=== PATIENT | male | born 1985 | race Two or more races ===

== ENCOUNTER 2025-01-19 17:12 | Inpatient (IN) | payer OTHER, SELFPAY ==
--- NOTE | ~2025-01-19 | FL_ITS ---
EXAMINATION: FL GUIDANCE ONLY HISTORY: ERCP COMPARISON: Correlation is made with an abdominal ultrasound dated 01/19/2025. TECHNIQUE: Fluoroscopy time: 1.0 minutes. Cumulative Dose: 24.6 mGy. DAP: 6.70 mGym2 Images: 5. FINDINGS: Images demonstrate opacification of the common bile duct and intrahepatic biliary radicles. The common bile duct is normal in caliber. No intraluminal filling defects are identified. FL/FL guidance in OR IMPRESSION: Fluoroscopy during procedure. Please see procedure report for additional information. Electronically signed by: Alberto Leon MD 01/21/2025 03:29 PM EDT
--- NOTE | ~2025-01-19 | NM_ITS ---
EXAMINATION: NM BILIARY TRACT CLINICAL INFORMATION: Epigastric and upper abdominal pain x2 days. Ultrasound abdomen demonstrates numerous mobile intraluminal gallstones. COMPARISON: Abdomen limited ultrasound 01/19/2025. TECHNIQUE: Hepatobiliary scan was performed after the IV administration of 4.75 mCi technetium 99m-mebrofenin. Images obtained every 2 minutes postinjection for total of 2 hours. 3.5 hour delay images also obtained. FINDINGS: There is rapid uptake of blood flow related to his into the hepatic parenchyma. There are no photopenic defects. There is mildly delayed excretion of radiotracer into the bile ducts and common duct. At 1 hour 20 minutes, the small bowel/duodenum is visualized. Mildly delayed visualization of the gallbladder was evident although gallbladder was visualized filling with radiotracer at 3.5 hour delayed imaging. NM/NM hepatobiliary wo pharm IMPRESSION: 1. No evidence of acute cholecystitis. The gallbladder was visualized normally at 3.5 hour delayed images. 2. Somewhat delayed excretion of radiotracer into the duodenum as described. This is nonspecific and could represent a partial common duct obstruction versus hepatocellular dysfunction. Recommend correlating with laboratory values and ultimately ERCP. Electronically signed by: Miah Garcia MD 01/20/2025 04:59 PM EDT
--- NOTE | ~2025-01-19 | US_ITS ---
CLINICAL HISTORY: ruq pain after eating US abdomen limited Comparison: None Findings: Normally distended gallbladder with no gallbladder wall thickening or pericholecystic fluid. Multiple mobile hyperechoic gallstones in the gallbladder lumen. Mild extrahepatic biliary ductal dilatation. The common duct measures approximately 10 mm in diameter at the jared hepatis. IMPRESSION: 1. Multiple mobile gallstones with extrahepatic biliary ductal dilatation but no findings of cholecystitis. Findings could represent an element of biliary tract obstruction. This document has been electronically signed by: Giuseppe Grey MD on 01/19/2025 19:18:30
[2025-01-19 17:25] VITALS: BP 142/84; PULSE 73; RESP 18; TEMP 36.9; O2SAT 97; BMI 23.5
[2025-01-19 18:03] LABS: MANUAL DIFF FLAG NO
[2025-01-19 18:21] LABS: Basophils Absolute Auto 0.1 X10*3/uL (0.0-0.2); Basophils Percent Auto 0.7 % (0-2); Eosinophils Absolute Auto 0.3 X10*3/uL (0.0-0.4); Hematocrit 42.1 % (42.0-52.0); Hemoglobin 14.5 g/dl (14.0-18.0); Imm Gran Abs Auto 0.03 X10*3/uL (0.00-0.03); Imm Gran Pct Auto 0.4 % (0.0-0.4); Lymphocytes Absolute Auto 1.8 X10*3/uL (1.2-4.9); Lymphocytes Percent Auto 22.3 % (20-40); Mean Corpuscular HGB Conc 34.4 g/dl (31.0-36.0); Mean Corpuscular Hemoglobin 30.1 pg (27.0-33.0); Mean Corpuscular Volume 87.3 fL (80.0-98.0); Mean Platelet Volume 11.2 fL (9.4-12.4); Monocytes Absolute Auto 0.6 X10*3/uL (0.1-1.2); Monocytes Percent Auto 7.4 % (2-11); Neutrophils Absolute Auto 5.4 x10*3/uL (2.0-8.3); Neutrophils Percent Auto 66.2 % (45-73); Platelet Count 235 X10*3/uL (160-400); Red Blood Count 4.82 X10*6/uL (4.60-5.80); Red Cell Distribution Width 13.2 % (11.0-16.0); White Blood Count 8.2 X10*3/uL (4.8-10.8)
[2025-01-19 18:23] LABS: Alanine Aminotransferase 737 U/L (0-40); Albumin Level 4.4 g/dL (3.5-5.0); Alkaline Phosphatase 94 U/L (39-117); Anion Gap 12 (12-20); Aspartate Amino Transferase 386 U/L (5-37); Bilirubin Total 3.2 mg/dL (0.0-1.0); Blood Urea Nitrogen 7 mg/dL (9-16); Calcium 9.2 mg/dL (8.4-10.2); Carbon Dioxide 27 mmol/L (22-29); Chloride 105 mmol/L (96-108); Creatinine Clr Calc Pharmacy 91.1; Estimated Glomerular Filt Rate > 60; Glucose Random 110 mg/dL (60-115); Lipase 31 U/L (8-78); Sodium 140 mmol/L (135-145)
[2025-01-19 18:44] LABS: Influenza A PCR NEGATIVE (Negative); Influenza B PCR NEGATIVE (Negative); Resp Syncy Virus RNA Qual PCR NEGATIVE (Negative); SARS COV2 PCR INHOUSE NEGATIVE (Negative)
[2025-01-19 21:09] VITALS: BP 124/81; PULSE 62; RESP 16; TEMP 36.7; O2SAT 97
--- NOTE | 2025-01-19 21:33 | ED.ABDPAIN ---
HPI - Abdominal Pain General Chief Complaint: Abdominal Pain Stated Complaint: Rib cage pain Time Seen by Provider: 01/19/25 21:19 Source: patient Limitations: no limitations History of Present Illness ED Provider: Candis Rothman PA-C HPI narrative: 39-year-old otherwise healthy male presents with the abdominal pain x2 days. Pain over epigastric and right upper quadrant with radiation to the back. The discomfort worsens with the eating, which also triggers active vomiting. Associated chills but no fever. Patient was not had any intra-abdominal surgeries. Related Data Allergies Allergy/AdvReac Type Severity Reaction Status Date / Time Penicillins Allergy Rash Verified 01/19/25 17:31 Review of Systems Review of Systems Yes all other systems are reviewed and are negative Constitutional: Reports chills, Denies fatigue and Denies fever(s) Cardiovascular: Denies chest pain and Denies dyspnea Respiratory: Denies cough and Denies dyspnea Gastrointestinal: Reports abdominal pain, Reports nausea and Reports vomiting Endocrine: Denies fatigue PMFSH Past Medical History Attestation statement: The following information was validated with the patient. Social History Social History Advance Directives: No Advance Directives Information Provided: Yes Physical Exam ED Vital Signs: Vital Signs - 24 hr 01/19/25 17:25 01/19/25 21:09 Temperature 98.5 F 98.1 F Pulse Rate 73 62 Respiratory Rate 18 16 Blood Pressure 142/84 H 124/81 Pulse Oximetry 97 97 Oxygen Delivery Method Room Air Room Air BMI result Body Mass Index 23.5 Const Other: Alert Orientation/consciousness: patient oriented x3 Resp Effort & Inspection: normal respiratory effort Cardio Other: Normal peripheral perfusion GI Other: Abdomen is soft, nondistended, mild to moderate tenderness in right upper quadrant but no guarding Skin Other: Warm dry no rash Neuro General: patient oriented x3, gait normal, no focal motor deficits and CN's II-XI intact bilaterally Psych Other: Cooperative Course Consultations Consultation #1: paged Dr. Stock, she recommends medicine admit and they will follow, and the patient clearly requires GI consult Time: 21:42 Medical Decision Making Medical Decision Making MDM Narrative: 39-year-old otherwise healthy male presents with the abdominal pain x2 days. Pain over epigastric and right upper quadrant with radiation to the back. The discomfort worsens with the eating, which also triggers active vomiting. Associated chills but no fever. Patient was not had any intra-abdominal surgeries. No chronic issues History: Per patient I have considered the following differential diagnoses: Biliary colic, cholecystitis, gastritis, pancreatitis Plan: Screening labs including LFTs and an ultrasound of right upper quadrant were already obtained from triage, he is having active biliary colic, with concerns for choledocholithiasis. We will be ordering fluid, Zofran and morphine, we will be reaching out to the surgical service, he clearly requires GI as well. I have independently reviewed the following tests: Labs: No leukocytosis, not anemic, no electrolyte abnormality, T bili 3.2, direct bili 2, AST 386, ALT 737, Ultrasound right upper quadrant:IMPRESSION: 1. Multiple mobile gallstones with extrahepatic biliary ductal dilatation but no findings of cholecystitis. Findings could represent an element of biliary tract obstruction. This document has been electronically signed by: Giuseppe Grey MD on 01/19/2025 19:18:30 Lab Data 01/19/25 17:59 01/19/25 17:59 Labs: Lab Results 01/19/25 Range/Units 17:59 WBC 8.2 (4.8-10.8) X10*3/uL RBC 4.82 (4.60-5.80) X10*6/uL Hgb 14.5 (14.0-18.0) g/dl Hct 42.1 (42.0-52.0) % MCV 87.3 (80.0-98.0) fL MCH 30.1 (27.0-33.0) pg MCHC 34.4 (31.0-36.0) g/dl RDW 13.2 (11.0-16.0) % Plt Count 235 (160-400) X10*3/uL MPV 11.2 (9.4-12.4) fL Immature Gran % (Auto) 0.4 (0.0-0.4) % Neut % (Auto) 66.2 (45-73) % Lymph % (Auto) 22.3 (20-40) % [place] % (Auto) 7.4 (2-11) % Eos % (Auto) 3.0 (0-4) % Baso % (Auto) 0.7 (0-2) % Lymph # (Auto) 1.8 (1.2-4.9) X10*3/uL [place] # (Auto) 0.6 (0.1-1.2) X10*3/uL Eos # (Auto) 0.3 (0.0-0.4) X10*3/uL Baso # (Auto) 0.1 (0.0-0.2) X10*3/uL Abs Immat Gran (auto) 0.03 (0.00-0.03) X10*3/uL Absolute Neuts (auto) 5.4 (2.0-8.3) x10*3/uL Absolute Nucleated RBC 0.000 (0.0-0.012) X10*3/uL Nucleated RBC % (auto) 0.0 (0.0-0.2) /100WBC Sodium 140 (135-145) mmol/L Potassium 4.0 (3.3-5.1) mmol/L Chloride 105 (96-108) mmol/L Carbon Dioxide 27 (22-29) mmol/L Anion Gap 12 (12-20) BUN 7 L (9-16) mg/dL Creatinine 1.11 (0.5-1.4) mg/dL Estim Creat Clear Calc 91.1 Estimated GFR > 60 Random Glucose 110 (60-115) mg/dL Calcium 9.2 (8.4-10.2) mg/dL Total Bilirubin 3.2 H (0.0-1.0) mg/dL Direct Bilirubin 2.0 H (0.0-0.5) mg/dL AST 386 H (5-37) U/L ALT 737 H (0-40) U/L Alkaline Phosphatase 94 (39-117) U/L Total Protein 8.0 (6.5-8.0) g/dL Albumin 4.4 (3.5-5.0) g/dL Lipase 31 (8-78) U/L Influenza Type A (PCR) NEGATIVE (Negative) Influenza Type B (PCR) NEGATIVE (Negative) RSV RNA Qual (PCR) NEGATIVE (Negative) SARS-CoV-2 RNA (RT-PCR) NEGATIVE (Negative) Discharge Plan Discharge Clinical Impression: Cholelithiasis, Choledocholithiasis, Biliary colic Patient Disposition: Admitted As Inpatient Print Language: Yakut
[2025-01-19 21:52] VITALS: BP 126/71; PULSE 71; RESP 16; TEMP 36.7; O2SAT 97
[2025-01-19] MEDS: 0.9 % Sodium Chloride 1,000 ML 999 ML IV (21:52)
[2025-01-19] MEDS: Morphine Sulfate 4 MG/ML CARTRIDGE IVPUSH (21:52)
[2025-01-19] MEDS: ondansetron HCL 4 MG/2 ML VIAL IVPUSH (21:53)
--- NOTE | 2025-01-19 21:58 | PC.NURSE ---
pt change into hospital attire, Iv placed, medicated per mar, pt NPO.
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
--- NOTE | 2025-01-19 23:03 | PHA.MEDREC ---
Addendum entered by Ileana Lewis RPh 01/19/25 23:05: Med rec was reviewed by Gordon. Original Note: Pharmacy Consult ? Medication Reconciliation Pharmacy has completed the medication reconciliation. Patient confirmed he is not currently taking any medications at this time.
[2025-01-19 23:51] VITALS: BP 115/69; PULSE 63; RESP 16; TEMP 36.8; O2SAT 96
--- NOTE | 2025-01-19 23:55 | MHC.EDTECH ---
This pct assumed care of Patient at 2300 ,vitals taken ,Patient resting quietly in bed .
[2025-01-20] VITALS (8 sets, daily range): BP systolic 107–141; BP diastolic 62–89; PULSE 59–73; RESP 15–18; TEMP 36.4–36.9; O2SAT 97–98
[2025-01-20] MEDS: 0.9 % Sodium Chloride Flush 3 ML SYRINGE IVFLUSH ×3 (05:05→17:37)
[2025-01-20 05:18] LABS: MANUAL DIFF FLAG NO
[2025-01-20 05:24] LABS: Basophils Absolute Auto 0.1 X10*3/uL (0.0-0.2); Basophils Percent Auto 0.7 % (0-2); Eosinophils Absolute Auto 0.3 X10*3/uL (0.0-0.4); Hematocrit 39.4 % (42.0-52.0); Hemoglobin 13.6 g/dl (14.0-18.0); Imm Gran Abs Auto 0.04 X10*3/uL (0.00-0.03); Imm Gran Pct Auto 0.5 % (0.0-0.4); Lymphocytes Absolute Auto 2.1 X10*3/uL (1.2-4.9); Lymphocytes Percent Auto 24.4 % (20-40); Mean Corpuscular HGB Conc 34.5 g/dl (31.0-36.0); Mean Platelet Volume 11.5 fL (9.4-12.4); Monocytes Absolute Auto 0.9 X10*3/uL (0.1-1.2); Neutrophils Absolute Auto 5.3 x10*3/uL (2.0-8.3); Neutrophils Percent Auto 61.4 % (45-73); Platelet Count 208 X10*3/uL (160-400); Red Blood Count 4.53 X10*6/uL (4.60-5.80); Red Cell Distribution Width 13.1 % (11.0-16.0); White Blood Count 8.6 X10*3/uL (4.8-10.8)
[2025-01-20 05:48] LABS: Alanine Aminotransferase 622 U/L (0-40); Albumin Level 3.9 g/dL (3.5-5.0); Alkaline Phosphatase 83 U/L (39-117); Anion Gap 12 (12-20); Aspartate Amino Transferase 263 U/L (5-37); Bilirubin Total 3.5 mg/dL (0.0-1.0); Blood Urea Nitrogen 8 mg/dL (9-16); Calcium 8.7 mg/dL (8.4-10.2); Carbon Dioxide 25 mmol/L (22-29); Chloride 108 mmol/L (96-108); Creatinine Clr Calc Pharmacy 109.9; Estimated Glomerular Filt Rate > 60; Glucose Random 89 mg/dL (60-115); Lipase 20 U/L (8-78); Potassium 3.7 mmol/L (3.3-5.1); Sodium 141 mmol/L (135-145)
[2025-01-20 05:56] LABS: HBS Num1 224.18 mIU/mL (0-7.99); HBc Num1 0.13 S/CO (0.00-0.79); HBsAGNum1 0.29 S/CO (0.00-0.99); Hepatitis A Antibody IgM 0.15 Index (0-0.79); Hepatitis B Core Antibody Nonreactive (Nonreactive); Hepatitis B Surface Antigen Negative (Negative); ~HepC Num1 0.09 S/CO (0.00-0.79); ~Hepatitis A Antibody IgM Nonreactive (Nonreactive); ~Hepatitis B Surface Antibody REACTIVE (Nonreactive); ~Hepatitis C Antibody Nonreactive (Nonreactive)
--- NOTE | 2025-01-20 06:06 | PC.NURSE ---
pt sleeping comfortable all night, girlfriend at the bed side, pt remains NPO, no sign of distress.
--- NOTE | 2025-01-20 06:17 | MHC.EDTECH ---
0600 rounding done ,vitals taken ,Patient up walking to bathroom independently ,void back to bed .no apparent distress noted .
--- NOTE | 2025-01-20 07:10 | P.CONGS_ITS ---
History of Present Illness Consult details Consult date: 01/20/25 Narrative: Patient was a 39-year-old male presents with a two-day history of epigastric/upper abdominal pain. He has never had such symptoms before. Because of progression of symptoms he presents to the emergency department for further workup. This included sonogram demonstrated significant cholelithiasis. Labs including LFTs are noteworthy for elevated bilirubin highly suggestive of choledocholithiasis. Chart was reviewed and patient evaluated PMFSH Social History Social History Household Members: Family Housing: Apartment Do you presently have visiting nurse or other home services: No Patient Tobacco Use Status: Never used Tobacco Substance Use Type: Marijuana service: No Meds Allergies Allergy/AdvReac Type Severity Reaction Status Date / Time Penicillins Allergy Rash Verified 01/19/25 17:31 Active Medications: Current Medications Acetaminophen (Acetaminophen 325 Mg Tablet) 650 mg PO Q6H PRN PRN Reason: Pain, Mild 1-3,fever,headache Calcium Carbonate (Calcium Carbonate 750 Mg Tab.Chew) 750 mg PO Q4H PRN PRN Reason: Heartburn Hydromorphone HCl (Hydromorphone Hcl 0.5 Mg/0.5 Ml Syringe) 0.5 mg IVPUSH Q4H PRN; Protocol PRN Reason: Pain, Severe (Pain Scale 7-10) Magnesium Hydroxide (Milk Of Magnesia 30 Ml Oral.Susp) 30 ml PO DAILY PRN PRN Reason: Constipation Melatonin (Melatonin 3 Mg Tablet) 6 mg PO BEDTIME PRN PRN Reason: Insomnia Morphine Sulfate (Morphine Sulfate 4 Mg/Ml Cartridge) 4 mg IVPUSH Q4H PRN; Protocol PRN Reason: Pain, Moderate(Pain Scale 4-6) Ondansetron HCl (Ondansetron Hcl 4 Mg/2 Ml Vial) 4 mg IVPUSH Q8H PRN PRN Reason: Nausea and Vomiting Sodium Chloride (0.9 % Sodium Chloride Flush 3 Ml Syringe) 3 ml IVFLUSH QSHIFT [facility] Last Admin: 01/20/25 05:05 Dose: 3 ml Home Medications ?Medication ?Instructions ?Recorded ?Confirmed ?Last Taken ?Type No Known Home Meds 01/19/25 01/19/25 Unknown History Physical Exam 2 Vital Signs: Vital Signs: Last Vital Signs Temp 98.1 F 01/20/25 06:16 Pulse 69 01/20/25 06:16 Resp 16 01/20/25 06:16 BP 114/72 01/20/25 06:16 Pulse Ox 98 01/20/25 06:16 O2 Del Method Room Air 01/20/25 06:16 BMI result Body Mass Index 23.5 Results Labs 01/20/25 04:32 01/20/25 04:32 Labs: Abnormal lab results 01/19/25 01/20/25 Range/Units 17:59 04:32 RBC 4.53 L (4.60-5.80) X10*6/uL Hgb 13.6 L (14.0-18.0) g/dl Hct 39.4 L (42.0-52.0) % Immature Gran % (Auto) 0.5 H (0.0-0.4) % Abs Immat Gran (auto) 0.04 H (0.00-0.03) X10*3/uL BUN 7 L 8 L (9-16) mg/dL Total Bilirubin 3.2 H 3.5 H (0.0-1.0) mg/dL Direct Bilirubin 2.0 H (0.0-0.5) mg/dL AST 386 H 263 H (5-37) U/L ALT 737 H 622 H (0-40) U/L Short CBC 01/19/25 01/20/25 Range/Units 17:59 04:32 WBC 8.2 8.6 (4.8-10.8) X10*3/uL Hgb 14.5 13.6 L (14.0-18.0) g/dl Hct 42.1 39.4 L (42.0-52.0) % Plt Count 235 208 (160-400) X10*3/uL BMP 01/19/25 01/20/25 17:59 04:32 Sodium 140 141 Potassium 4.0 3.7 Chloride 105 108 Carbon Dioxide 27 25 BUN 7 L 8 L Creatinine 1.11 0.92 Calcium 9.2 8.7 Liver Function 01/19/25 01/20/25 Range/Units 17:59 04:32 Total Bilirubin 3.2 H 3.5 H (0.0-1.0) mg/dL Direct Bilirubin 2.0 H (0.0-0.5) mg/dL AST 386 H 263 H (5-37) U/L ALT 737 H 622 H (0-40) U/L Alkaline Phosphatase 94 83 (39-117) U/L Albumin 4.4 3.9 (3.5-5.0) g/dL All other labs normal. Assessment and Plan (1) Cholelithiasis: Status: Acute (2) Choledocholithiasis: Status: Acute (3) Biliary colic: Status: Acute Plan Patient being admitted, is undergoing GI consultation and will most probably require ERCP but we will defer to the gastroenterology oracle fusion consultant. Once this is completed, laparoscopic cholecystectomy can be performed. To follow with you. Procedures Date of Service Date of Service: 01/20/25
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
--- NOTE | 2025-01-20 13:13 | MHC.CM.PN ---
PT IS INDEPDDENT AND WORKING WILL NOT NEED SERVICXES DC PLAN HOE NO SERVICES
--- NOTE | 2025-01-20 13:50 | PC.NURSE ---
Pt was taken to HIDA scan
[2025-01-21] VITALS (11 sets, daily range): BP systolic 111–141; BP diastolic 66–87; PULSE 63–81; RESP 16–20; TEMP 36.1–37.2; O2SAT 96–99
[2025-01-21 07:00] LABS: MANUAL DIFF FLAG NO
[2025-01-21 07:08] LABS: Basophils Absolute Auto 0.1 X10*3/uL (0.0-0.2); Basophils Percent Auto 0.8 % (0-2); Eosinophils Absolute Auto 0.3 X10*3/uL (0.0-0.4); Eosinophils Percent Auto 3.5 % (0-4); Hematocrit 42.1 % (42.0-52.0); Hemoglobin 14.6 g/dl (14.0-18.0); Imm Gran Abs Auto 0.03 X10*3/uL (0.00-0.03); Imm Gran Pct Auto 0.4 % (0.0-0.4); Lymphocytes Absolute Auto 1.6 X10*3/uL (1.2-4.9); Lymphocytes Percent Auto 20.9 % (20-40); Mean Corpuscular HGB Conc 34.7 g/dl (31.0-36.0); Mean Corpuscular Volume 86.4 fL (80.0-98.0); Mean Platelet Volume 11.4 fL (9.4-12.4); Monocytes Absolute Auto 0.8 X10*3/uL (0.1-1.2); Monocytes Percent Auto 10.6 % (2-11); Neutrophils Absolute Auto 4.8 x10*3/uL (2.0-8.3); Neutrophils Percent Auto 63.8 % (45-73); Platelet Count 225 X10*3/uL (160-400); Red Blood Count 4.87 X10*6/uL (4.60-5.80); Red Cell Distribution Width 12.8 % (11.0-16.0); White Blood Count 7.5 X10*3/uL (4.8-10.8)
--- NOTE | 2025-01-21 07:16 | P.PNGS_ITS ---
Subjective Subjective Date of Service: 01/21/25 Interval history: Patient had uneventful evening. Some nausea with clear liquids but has been NPO since late last night. Physical Exam 2 Vital Signs: Vital Signs: Last Vital Signs Temp 97.7 F 01/21/25 03:31 Pulse 63 01/21/25 03:31 Resp 18 01/21/25 03:31 BP 141/84 H 01/21/25 03:31 Pulse Ox 99 01/21/25 03:31 O2 Del Method Room Air 01/21/25 03:31 BMI result Body Mass Index 23.5 GI: Other: Abdomen is soft. Mild upper abdominal tenderness but no evidence of guarding, rebound, or rigidity. Objective Data Active Medications Acetaminophen (Acetaminophen 325 Mg Tablet) 650 mg PO Q6H PRN PRN Reason: Pain, Mild 1-3,fever,headache Calcium Carbonate (Calcium Carbonate 750 Mg Tab.Chew) 750 mg PO Q4H PRN PRN Reason: Heartburn Hydromorphone HCl (Hydromorphone Hcl 0.5 Mg/0.5 Ml Syringe) 0.5 mg IVPUSH Q4H PRN; Protocol PRN Reason: Pain, Severe (Pain Scale 7-10) Magnesium Hydroxide (Milk Of Magnesia 30 Ml Oral.Susp) 30 ml PO DAILY PRN PRN Reason: Constipation Melatonin (Melatonin 3 Mg Tablet) 6 mg PO BEDTIME PRN PRN Reason: Insomnia Morphine Sulfate (Morphine Sulfate 4 Mg/Ml Cartridge) 4 mg IVPUSH Q4H PRN; Protocol PRN Reason: Pain, Moderate(Pain Scale 4-6) Ondansetron HCl (Ondansetron Hcl 4 Mg/2 Ml Vial) 4 mg IVPUSH Q8H PRN PRN Reason: Nausea and Vomiting Sodium Chloride (0.9 % Sodium Chloride Flush 3 Ml Syringe) 3 ml IVFLUSH QSHIFT [facility] Last Admin: 01/21/25 01:35 Dose: Not Given Documented By: RICHIE Non-Admin Reason: Patient Asleep Labs 01/21/25 06:43 01/20/25 04:32 Labs: Laboratory Results - last 24 hr 01/21/25 06:43 MCV 86.4 MCH 30.0 MCHC 34.7 RDW 12.8 Plt Count 225 MPV 11.4 Immature Gran % (Auto) 0.4 Neut % (Auto) 63.8 Lymph % (Auto) 20.9 [place] % (Auto) 10.6 Eos % (Auto) 3.5 Baso % (Auto) 0.8 Lymph # (Auto) 1.6 [place] # (Auto) 0.8 Eos # (Auto) 0.3 Baso # (Auto) 0.1 Abs Immat Gran (auto) 0.03 Absolute Neuts (auto) 4.8 Absolute Nucleated RBC 0.000 Nucleated RBC % (auto) 0.0 Hold Purple Top SEE NOTE Procedures Date of Service Date of Service: 01/21/25 Progress Note: A&P Assessment and plan (1) Cholelithiasis: Status: Acute (2) Choledocholithiasis: Status: Acute (3) Biliary colic: Status: Acute Plan Patient was tentatively scheduled for ERCP for today. Also tentatively scheduled for lap choly for tomorrow. Time Spent With Patient Time: Total time managing care of this patient today ____ minutes. Quality Stroke Does the patient have a stroke diagnosis?: No VTE Prior VTE?: No VTE Risk Level:: Medical - moderate - high VTE Device Contraindication: N/A - Device Ordered VTE Drug Contraindication: Treatment Not Indicated
[2025-01-21 07:26] LABS: Alanine Aminotransferase 523 U/L (0-40); Albumin Level 4.1 g/dL (3.5-5.0); Alkaline Phosphatase 103 U/L (39-117); Anion Gap 14 (12-20); Aspartate Amino Transferase 148 U/L (5-37); Bilirubin Direct 2.3 mg/dL (0.0-0.5); Bilirubin Total 3.5 mg/dL (0.0-1.0); Blood Urea Nitrogen 11 mg/dL (9-16); Calcium 8.9 mg/dL (8.4-10.2); Carbon Dioxide 23 mmol/L (22-29); Chloride 106 mmol/L (96-108); Creatinine Clr Calc Pharmacy 117.6; Estimated Glomerular Filt Rate > 60; Glucose Random 83 mg/dL (60-115); Potassium 3.7 mmol/L (3.3-5.1); Sodium 139 mmol/L (135-145); Total Protein 7.5 g/dL (6.5-8.0)
[2025-01-21] MEDS: 0.9 % Sodium Chloride Flush 3 ML SYRINGE IVFLUSH ×3 (09:29→23:43)
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
--- NOTE | 2025-01-21 10:21 | MHC.SHP ---
Pre-Procedural Eval Section A - 24 Hr Update-Section A only Date of Service: 01/22/25 The patient is an INPATIENT: Yes Changes since office visit: No Cold of Flu in the past 2 weeks, No New Medical Problems, No Changes in Medication and No Patient answered all questions Section B - Complete if H&P > 30 days Chief Complaint: choledocolithiasis Allergies: Allergies Allergy/AdvReac Type Severity Reaction Status Date / Time Penicillins Allergy Rash Verified 01/19/25 17:31 Review of Systems Sugical H&P ROS: Negative: Constitution, Cardiovascular, Respiratory, Neurological, Psychiatric, Hem-Onc, Allergic/Immunologic, Gastrointestinal, Genitourinary, Musculoskeletal, Integumentary, Endocrine and Eyes/Ears/Nose/Throat Exam Surgical H&P Exam: Normal: HEENT, Normal: Heart, Normal: Lungs, Normal: Extremities, Normal: Abdomen, Normal: Skin and Normal: Neurological Plan I have reviewed the history and physical and performed a pertinent physical examination on my patient. No changes have occurred unless specified. Time Spent With Patient Time: Total time managing care of this patient today ____ minutes.
--- NOTE | 2025-01-21 12:43 | P.PNGI_ITS ---
Subjective Subjective Date of Service: 01/21/25 Interval History: LFT relatively static, HIDA with suggestion of partial CBD obstruction still ahs ruq pain with eating and nausea Critical Care Time (minutes): 0 Physical Exam 2 Vital Signs: Vital Signs: Last Vital Signs Temp 97.9 F 01/21/25 11:56 Pulse 73 01/21/25 11:56 Resp 16 01/21/25 11:56 BP 132/73 01/21/25 11:56 Pulse Ox 97 01/21/25 11:56 O2 Del Method Room Air 01/21/25 11:56 BMI result Body Mass Index 23.5 EXAM: GENERAL: The patient is well developed and nontoxic. VITAL SIGNS:see workflow HEENT: Nonicteric sclerae, PERRLA, EOMI. Oropharynx clear. Moist mucous membranes. Conjunctivae appear well perfused. No thyroid mass. CHEST: Chest wall is nontender. HEART: Regular rate and rhythm without murmurs. LUNGS: Clear to auscultation bilaterally. ABDOMEN: Soft, positive bowel sounds, nontender, no organomegaly.no flank tenderness SKIN: No rash, no excessive bruising, petechiae, or purpura. NEUROLOGIC: Cranial nerves II-XII intact without motor/sensory deficit. Psych: normal affect Objective Data Labs 01/21/25 06:43 01/21/25 06:43 Labs: Laboratory Results - last 24 hr 01/21/25 06:43 WBC 7.5 RBC 4.87 Hgb 14.6 Hct 42.1 MCV 86.4 MCH 30.0 MCHC 34.7 RDW 12.8 Plt Count 225 MPV 11.4 Immature Gran % (Auto) 0.4 Neut % (Auto) 63.8 Lymph % (Auto) 20.9 [place] % (Auto) 10.6 Eos % (Auto) 3.5 Baso % (Auto) 0.8 Lymph # (Auto) 1.6 [place] # (Auto) 0.8 Eos # (Auto) 0.3 Baso # (Auto) 0.1 Abs Immat Gran (auto) 0.03 Absolute Neuts (auto) 4.8 Absolute Nucleated RBC 0.000 Nucleated RBC % (auto) 0.0 Hold Purple Top SEE NOTE Sodium 139 Potassium 3.7 Chloride 106 Carbon Dioxide 23 Anion Gap 14 BUN 11 Creatinine 0.86 Estim Creat Clear Calc 117.6 Estimated GFR > 60 Random Glucose 83 Calcium 8.9 Total Bilirubin 3.5 H Direct Bilirubin 2.3 H AST 148 H ALT 523 H Alkaline Phosphatase 103 Total Protein 7.5 Albumin 4.1 Procedures Date of Service Date of Service: 01/21/25 Progress Note: A&P Assessment and plan (1) Choledocholithiasis: Status: Acute Plan 1/ symptomatic gallstones, concern for choledocholithiasis with persistent symptoms and elevated LFT PLAN: 1/ERCP today for further assessment 2/ will order indomethacin LA as well Time Spent With Patient Time: Total time managing care of this patient today ____ minutes. Quality Stroke Does the patient have a stroke diagnosis?: No VTE Prior VTE?: No VTE Risk Level:: Medical - moderate - high VTE Device Contraindication: N/A - Device Ordered VTE Drug Contraindication: Treatment Not Indicated
[2025-01-21] MEDS: Lactated Ringers 1,000 ML 80 ML IVCONT ×2 (13:06→16:14)
--- NOTE | 2025-01-21 13:10 | MHC.SHP ---
Pre-Procedural Eval Section A - 24 Hr Update-Section A only Date of Service: 01/21/25 The patient is an INPATIENT: Yes The patient has been examined within 24 hours of the surgical procedure. The History & Physical has been completed within 30 days and I have reviewed it.: Yes Section B - Complete if H&P > 30 days Chief Complaint: choledocolithiasis Allergies: Allergies Allergy/AdvReac Type Severity Reaction Status Date / Time Penicillins Allergy Rash Verified 01/21/25 13:05 Plan Diagnosis/Plan: Unchanged I have reviewed the history and physical and performed a pertinent physical examination on my patient. No changes have occurred unless specified. Time Spent With Patient Time: Total time managing care of this patient today ____ minutes.
--- NOTE | 2025-01-21 13:20 | HO.ANESPROP2 ---
HPI - Anesthesia Eval Consult details Narrative: 39 yo M presenting for ERCP [facility] Active Problems Active Problems: All Active Problems Biliary colic (Acute) Choledocholithiasis (Acute) Cholelithiasis (Acute) Past Medical History Medical History (Updated 01/21/25 @ 13:05 by Gretchen Lindsey RN) No pertinent past medical history Functional capacity: independent ambulation Family History Family history of problems with anesthesia: No Surgical History Surgical History (Updated 01/21/25 @ 13:04 by Gretchen Lindsey RN) History of surgery on upper extremity History of Problems with Anesthesia: No Social History Social History Household Members: Family Household Members Other:: 2 uncles Housing: Apartment Are you a primary home care coordinator to a significant other at home: No Do you presently have visiting nurse or other home services: No Patient Tobacco Use Status: Never used Tobacco Substance Use Type: Marijuana service: No Meds Allergies Allergy/AdvReac Type Severity Reaction Status Date / Time Penicillins Allergy Rash Verified 01/21/25 13:05 Active Medications: Current Medications Acetaminophen (Acetaminophen 325 Mg Tablet) 650 mg PO Q6H PRN PRN Reason: Pain, Mild 1-3,fever,headache Calcium Carbonate (Calcium Carbonate 750 Mg Tab.Chew) 750 mg PO Q4H PRN PRN Reason: Heartburn Hydromorphone HCl (Hydromorphone Hcl 0.5 Mg/0.5 Ml Syringe) 0.5 mg IVPUSH Q4H PRN; Protocol PRN Reason: Pain, Severe (Pain Scale 7-10) Lactated Ringer's (Lr) 1,000 mls @ 80 mls/hr IVCONT .[id number] [facility] Last Admin: 01/21/25 13:06 Dose: 80 mls/hr Magnesium Hydroxide (Milk Of Magnesia 30 Ml Oral.Susp) 30 ml PO DAILY PRN PRN Reason: Constipation Melatonin (Melatonin 3 Mg Tablet) 6 mg PO BEDTIME PRN PRN Reason: Insomnia Morphine Sulfate (Morphine Sulfate 4 Mg/Ml Cartridge) 4 mg IVPUSH Q4H PRN; Protocol PRN Reason: Pain, Moderate(Pain Scale 4-6) Ondansetron HCl (Ondansetron Hcl 4 Mg/2 Ml Vial) 4 mg IVPUSH Q8H PRN PRN Reason: Nausea and Vomiting Sodium Chloride (0.9 % Sodium Chloride Flush 3 Ml Syringe) 3 ml IVFLUSH QSHIFT [facility] Last Admin: 01/21/25 09:29 Dose: 3 ml Home Medications ?Medication ?Instructions ?Recorded ?Confirmed ?Last Taken ?Type No Known Home Meds 01/19/25 01/19/25 Unknown History Exam Exam Date and Time: 01/21/25 1320 Height,Weight and Vital Signs: Height 5 ft 9 in Weight 72.2 kg Last Vital Signs Temp 99.0 F 01/21/25 13:03 Pulse 70 01/21/25 13:03 Resp 18 01/21/25 13:03 BP 141/87 H 01/21/25 13:03 Pulse Ox 97 01/21/25 13:03 O2 Del Method Room Air 01/21/25 13:03 Pertinent Lab Results Pertinent Lab Results: Laboratory Tests 01/19/25 01/20/25 01/21/25 17:59 04:32 06:43 WBC 8.2 8.6 7.5 RBC 4.82 4.53 L 4.87 Hgb 14.5 13.6 L 14.6 Hct 42.1 39.4 L 42.1 MCV 87.3 87.0 86.4 MCH 30.1 30.0 30.0 MCHC 34.4 34.5 34.7 RDW 13.2 13.1 12.8 Plt Count 235 208 225 MPV 11.2 11.5 11.4 Immature Gran % (Auto) 0.4 0.5 H 0.4 Neut % (Auto) 66.2 61.4 63.8 Lymph % (Auto) 22.3 24.4 20.9 [place] % (Auto) 7.4 10.0 10.6 Eos % (Auto) 3.0 3.0 3.5 Baso % (Auto) 0.7 0.7 0.8 Lymph # (Auto) 1.8 2.1 1.6 [place] # (Auto) 0.6 0.9 0.8 Eos # (Auto) 0.3 0.3 0.3 Baso # (Auto) 0.1 0.1 0.1 Abs Immat Gran (auto) 0.03 0.04 H 0.03 Absolute Neuts (auto) 5.4 5.3 4.8 Absolute Nucleated RBC 0.000 0.000 0.000 Nucleated RBC % (auto) 0.0 0.0 0.0 Hold Purple Top SEE NOTE Sodium 140 141 139 Potassium 4.0 3.7 3.7 Chloride 105 108 106 Carbon Dioxide 27 25 23 Anion Gap 12 12 14 BUN 7 L 8 L 11 Creatinine 1.11 0.92 0.86 Estim Creat Clear Calc 91.1 109.9 117.6 Estimated GFR > 60 > 60 > 60 Random Glucose 110 89 83 Calcium 9.2 8.7 8.9 Total Bilirubin 3.2 H 3.5 H 3.5 H Direct Bilirubin 2.0 H 2.3 H AST 386 H 263 H 148 H ALT 737 H 622 H 523 H Alkaline Phosphatase 94 83 103 Total Protein 8.0 7.0 7.5 Albumin 4.4 3.9 4.1 Lipase 31 20 Hepatitis A IgM Ab Nonreactive Hep Bs Antigen Negative Hep Bs Antibody REACTIVE Hep B Core Total Ab Nonreactive Hepatitis C Ab (EIA) Nonreactive Influenza Type A (PCR) NEGATIVE Influenza Type B (PCR) NEGATIVE RSV RNA Qual (PCR) NEGATIVE SARS-CoV-2 RNA (RT-PCR) NEGATIVE Airway Mallampati Class: II TM Dist: >3cm Neck ROM: Full Loose/Missing/Broken Teeth: Yes (broken molars right lower jaw) Heart: S1S2 Lungs: CTAB Assessment and Plan Assessment Anesthesia Assessment: Anesthesia Plan Discussed and Chart Reviewed Final Anesthetic Review Family History of Problems with Anesthesia: No History of Problems with Anesthesia: No NPO: Yes ASA Class: II Final Preanesthetic Review: No Changes in Pt Med Stat, Meds/Allgs Chart Reviewed, Consent Obtained/Reviewed and Anes Risks/Benef Reviewed Patient Risk: Low Procedure Risk: Low Anesthetic Plan Anesthetic Plan: GA (versus MAC depending on extensiveness of procedure) and Agree w/ Assess. and Plan Disposition: Standard PACU
--- NOTE | 2025-01-21 15:00 | W.PM.OPN ---
Operative Note Operative Note Date of Service: 01/21/25 Narrative: Description:?Endoscopic retrograde cholangiopancreatography (ERCP) PROCEDURE:?Endoscopic retrograde cholangiopancreatography with sphincterotomy, stone extraction and intra op cholangiogram INDICATION FOR THE PROCEDURE:?Patient with a history of abn LFT and abdo pain concern for choledocholithiasis MEDICATIONS:?General anesthesia. The risks of the procedure were made aware to the patient and consisted of medication reaction, bleeding, perforation, aspiration, and post ERCP pancreatitis. DESCRIPTION OF PROCEDURE:?After informed consent and appropriate sedation, the duodenoscope was inserted into the oropharynx, down the esophagus, and into the stomach. The scope was then advanced through the pylorus to the ampulla. The tome was angled and entered the CBD using wire guided technique. This was confirmed with cholangiogram which revealed a dialted duct with at least one filling defect. A sphincterotomy was performed and then an extraction balloon was swept across the duct several times with removal of x 2 yellow colored stones about 8-10 mm in diameter. \ An occlusion cholangiogram was performed and no further defects were noted. The procedure was then terminated. FINDINGS: 1. choledocholithiasis RECOMMENDATIONS: 1. Can have clears 2. f/u with surgery for cholecystectomy
[2025-01-21] MEDS: Throat Lozenge, Medicated LOZENGE 1 LOZENGE MUCOUS MEM (17:07)
[2025-01-22] VITALS (14 sets, daily range): BP systolic 113–155; BP diastolic 67–87; PULSE 62–97; RESP 14–20; TEMP 36–37.2; O2SAT 95–98
[2025-01-22] MEDS: Lactated Ringers 1,000 ML 80 ML IVCONT ×3 (03:25→23:14)
[2025-01-22 06:36] LABS: Hematocrit 37.5 % (42.0-52.0); Hemoglobin 13.5 g/dl (14.0-18.0); Mean Corpuscular Hemoglobin 30.8 pg (27.0-33.0); Mean Corpuscular Volume 85.6 fL (80.0-98.0); Mean Platelet Volume 11.5 fL (9.4-12.4); Platelet Count 202 X10*3/uL (160-400); Red Blood Count 4.38 X10*6/uL (4.60-5.80); Red Cell Distribution Width 12.7 % (11.0-16.0); White Blood Count 9.8 X10*3/uL (4.8-10.8)
[2025-01-22 06:51] LABS: Alanine Aminotransferase 413 U/L (0-40); Albumin Level 3.8 g/dL (3.5-5.0); Alkaline Phosphatase 95 U/L (39-117); Anion Gap 14 (12-20); Aspartate Amino Transferase 109 U/L (5-37); Bilirubin Direct 1.5 mg/dL (0.0-0.5); Bilirubin Total 2.5 mg/dL (0.0-1.0); Blood Urea Nitrogen 8 mg/dL (9-16); Calcium 8.6 mg/dL (8.4-10.2); Carbon Dioxide 23 mmol/L (22-29); Chloride 106 mmol/L (96-108); Creatinine Clr Calc Pharmacy 116.2; Estimated Glomerular Filt Rate > 60; Glucose Random 86 mg/dL (60-115); Potassium 3.7 mmol/L (3.3-5.1); Sodium 139 mmol/L (135-145)
--- NOTE | 2025-01-22 08:36 | HO.POSTANES ---
Post Anesthesia Evaluation Post Anesthesia Evaluation Date of Service: 01/22/25 Vital Signs: Vital Signs Temp Pulse Resp BP Pulse Ox O2 Del Method 01/22/25 07:59 98.6 F 97 18 125/82 95 Room Air 01/22/25 03:34 96.8 F 80 16 133/78 96 Room Air 01/21/25 23:42 97.0 F 68 16 131/74 96 Room Air Anesthesia: General Endotracheal-GETA Mental Status: Awake Pain Control: Satisfactory Nausea/Vomiting: None Hydration: Adequate Anesthesia-Related Issues: No Anes. Related Issues
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
--- NOTE | 2025-01-22 12:04 | MHC.CM.PN ---
PER MD ROUNDS, PT NOT EXPECTED TO BE READY TO DC TODAY DCP: HOME VIA PRIVATE TRANSPORT
--- NOTE | 2025-01-22 13:37 | P.CONAN_ITS ---
[facility] Active Problems Active Problems: All Active Problems Biliary colic (Acute) Choledocholithiasis (Acute) Cholelithiasis (Acute) Past Medical History Medical History No pertinent past medical history Functional capacity: independent ambulation Family History Family history of problems with anesthesia: No Surgical History Surgical History History of surgery on upper extremity History of Problems with Anesthesia: No Social History Social History Household Members: Family Household Members Other:: 2 uncles Housing: Apartment Are you a primary intensive care nurse to a significant other at home: No Do you presently have visiting nurse or other home services: No Patient Tobacco Use Status: Never used Tobacco Substance Use Type: Marijuana service: No Meds Allergies Allergy/AdvReac Type Severity Reaction Status Date / Time Penicillins Allergy Rash Verified 01/21/25 13:05 Active Medications: Current Medications Acetaminophen (Acetaminophen 325 Mg Tablet) 650 mg PO Q6H PRN PRN Reason: Pain, Mild 1-3,fever,headache Benzocaine (Throat Lozenge, Medicated Lozenge) 1 lozenge MUCOUS MEM Q2H PRN PRN Reason: Sore Throat Last Admin: 01/21/25 17:07 Dose: 1 lozenge Calcium Carbonate (Calcium Carbonate 750 Mg Tab.Chew) 750 mg PO Q4H PRN PRN Reason: Heartburn Hydromorphone HCl (Hydromorphone Hcl 0.5 Mg/0.5 Ml Syringe) 0.5 mg IVPUSH Q4H PRN; Protocol PRN Reason: Pain, Severe (Pain Scale 7-10) Lactated Ringer's (Lr) 1,000 mls @ 80 mls/hr IVCONT .[id number] [place] Last Admin: 01/22/25 13:15 Dose: Not Given Magnesium Hydroxide (Milk Of Magnesia 30 Ml Oral.Susp) 30 ml PO DAILY PRN PRN Reason: Constipation Melatonin (Melatonin 3 Mg Tablet) 6 mg PO BEDTIME PRN PRN Reason: Insomnia Morphine Sulfate (Morphine Sulfate 4 Mg/Ml Cartridge) 4 mg IVPUSH Q4H PRN; Protocol PRN Reason: Pain, Moderate(Pain Scale 4-6) Naloxone HCl (Naloxone Hcl 0.4 Mg/Ml Vial) 0.04 mg IVPUSH Q5M PRN PRN Reason: Excessive sedation or RR < 8 Ondansetron HCl (Ondansetron Hcl 4 Mg/2 Ml Vial) 4 mg IVPUSH Q8H PRN PRN Reason: Nausea and Vomiting Sodium Chloride (0.9 % Sodium Chloride Flush 3 Ml Syringe) 3 ml IVFLUSH QSHIFT [facility] Last Admin: 01/22/25 07:46 Dose: Not Given Home Medications ?Medication ?Instructions ?Recorded ?Confirmed ?Last Taken ?Type No Known Home Meds 01/19/25 01/19/25 Unknown History Exam Height,Weight and Vital Signs: Height 5 ft 9 in Weight 72.2 kg Last Vital Signs Temp 97.6 F 01/22/25 11:47 Pulse 87 01/22/25 11:47 Resp 16 01/22/25 11:47 BP 113/67 01/22/25 11:47 Pulse Ox 96 01/22/25 11:47 O2 Del Method Room Air 01/22/25 11:47 Pertinent Lab Results Pertinent Lab Results: Laboratory Tests 01/19/25 01/20/25 01/21/25 17:59 04:32 06:43 WBC 8.2 8.6 7.5 RBC 4.82 4.53 L 4.87 Hgb 14.5 13.6 L 14.6 Hct 42.1 39.4 L 42.1 MCV 87.3 87.0 86.4 MCH 30.1 30.0 30.0 MCHC 34.4 34.5 34.7 RDW 13.2 13.1 12.8 Plt Count 235 208 225 MPV 11.2 11.5 11.4 Immature Gran % (Auto) 0.4 0.5 H 0.4 Neut % (Auto) 66.2 61.4 63.8 Lymph % (Auto) 22.3 24.4 20.9 [place] % (Auto) 7.4 10.0 10.6 Eos % (Auto) 3.0 3.0 3.5 Baso % (Auto) 0.7 0.7 0.8 Lymph # (Auto) 1.8 2.1 1.6 [place] # (Auto) 0.6 0.9 0.8 Eos # (Auto) 0.3 0.3 0.3 Baso # (Auto) 0.1 0.1 0.1 Abs Immat Gran (auto) 0.03 0.04 H 0.03 Absolute Neuts (auto) 5.4 5.3 4.8 Absolute Nucleated RBC 0.000 0.000 0.000 Nucleated RBC % (auto) 0.0 0.0 0.0 Hold Purple Top SEE NOTE Sodium 140 141 139 Potassium 4.0 3.7 3.7 Chloride 105 108 106 Carbon Dioxide 27 25 23 Anion Gap 12 12 14 BUN 7 L 8 L 11 Creatinine 1.11 0.92 0.86 Estim Creat Clear Calc 91.1 109.9 117.6 Estimated GFR > 60 > 60 > 60 Random Glucose 110 89 83 Calcium 9.2 8.7 8.9 Total Bilirubin 3.2 H 3.5 H 3.5 H Direct Bilirubin 2.0 H 2.3 H AST 386 H 263 H 148 H ALT 737 H 622 H 523 H Alkaline Phosphatase 94 83 103 Total Protein 8.0 7.0 7.5 Albumin 4.4 3.9 4.1 Lipase 31 20 Hepatitis A IgM Ab Nonreactive Hep Bs Antigen Negative Hep Bs Antibody REACTIVE Hep B Core Total Ab Nonreactive Hepatitis C Ab (EIA) Nonreactive Influenza Type A (PCR) NEGATIVE Influenza Type B (PCR) NEGATIVE RSV RNA Qual (PCR) NEGATIVE SARS-CoV-2 RNA (RT-PCR) NEGATIVE 01/22/25 01/22/25 05:35 06:21 WBC 9.8 RBC 4.38 L Hgb 13.5 L Hct 37.5 L MCV 85.6 MCH 30.8 MCHC 36.0 RDW 12.7 Plt Count 202 MPV 11.5 Immature Gran % (Auto) Neut % (Auto) Lymph % (Auto) [place] % (Auto) Eos % (Auto) Baso % (Auto) Lymph # (Auto) [place] # (Auto) Eos # (Auto) Baso # (Auto) Abs Immat Gran (auto) Absolute Neuts (auto) Absolute Nucleated RBC 0.000 Nucleated RBC % (auto) 0.0 Hold Purple Top Sodium 139 Potassium 3.7 Chloride 106 Carbon Dioxide 23 Anion Gap 14 BUN 8 L Creatinine 0.87 Estim Creat Clear Calc 116.2 Estimated GFR > 60 Random Glucose 86 Calcium 8.6 Total Bilirubin 2.5 H Direct Bilirubin 1.5 H AST 109 H ALT 413 H Alkaline Phosphatase 95 Total Protein 7.0 Albumin 3.8 Lipase Hepatitis A IgM Ab Hep Bs Antigen Hep Bs Antibody Hep B Core Total Ab Hepatitis C Ab (EIA) Influenza Type A (PCR) Influenza Type B (PCR) RSV RNA Qual (PCR) SARS-CoV-2 RNA (RT-PCR) Airway Mallampati Class: III (full guileln) TM Dist: >3cm Neck ROM: Full Loose/Missing/Broken Teeth: No Heart: RRR Lungs: CTA Assessment and Plan Assessment Anesthesia Assessment: Anesthesia Plan Discussed and Chart Reviewed Final Anesthetic Review Family History of Problems with Anesthesia: No History of Problems with Anesthesia: No NPO: Yes ASA Class: II Final Preanesthetic Review: Meds/Allgs Chart Reviewed, Consent Obtained/Reviewed and Anes Risks/Benef Reviewed Patient Risk: Low Procedure Risk: Intermediate Anesthetic Plan Anesthetic Plan: GA Disposition: Standard PACU
--- NOTE | 2025-01-22 13:53 | MHC.SHP ---
Pre-Procedural Eval Section A - 24 Hr Update-Section A only Date of Service: 01/22/25 The patient is an INPATIENT: Yes Changes since office visit: No Cold of Flu in the past 2 weeks, No New Medical Problems, No Changes in Medication and No Patient answered all questions Section B - Complete if H&P > 30 days Chief Complaint: choledocolithiasis Allergies: Allergies Allergy/AdvReac Type Severity Reaction Status Date / Time Penicillins Allergy Rash Verified 01/21/25 13:05 Review of Systems Sugical H&P ROS: Negative: Constitution, Cardiovascular, Respiratory, Neurological, Psychiatric, Hem-Onc, Allergic/Immunologic, Gastrointestinal, Genitourinary, Musculoskeletal, Integumentary, Endocrine and Eyes/Ears/Nose/Throat Exam Surgical H&P Exam: Normal: HEENT, Normal: Heart, Normal: Lungs, Normal: Extremities, Normal: Abdomen, Normal: Skin and Normal: Neurological Plan I have reviewed the history and physical and performed a pertinent physical examination on my patient. No changes have occurred unless specified. Time Spent With Patient Time: Total time managing care of this patient today ____ minutes.
--- NOTE | 2025-01-22 15:07 | P.OP_ITS ---
Operative Note Operative Note Date of Service: 01/22/25 Narrative: Preoperative diagnosis: [] Cholelithiasis, choledocholithiasis, status post the ERCP Postop diagnosis: [] The same Procedure [] laparoscopic cholecystectomy Surgeon: [] Rickey Resolution Specialist: [] Kristen Type of Anesthesia: [] gen Indication for surgery: [] Choledocholithiasis Findings: [] Patient brought to the operating room, placed on operative table supine position, after an adequate level of general anesthesia was induced, the patient's abdomen was prepped and draped in usual sterile fashion using a supraumbilical curvilinear incision, Johnson technique was used to insufflate abdominal cavity to 15 mm of CO2. Upper midline and right subcostal ports were placed under direct laparoscopic view, the patient placed in reverse Trendelenburg position, tilted to the left. Gallbladder with multiple gallsto constanza was identified. It was grasped using laparoscopic graspers, and retracted superiorly and laterally. Soft omental adhesions were swept off the gallbladder with a common bile duct was identified was quite large and preserved throughout the procedure. Cystic artery and cystic duct were each identified, circumferentially skeletonized, traced directly into the gallbladder, and critical view obtained. Each was clipped proximally x2, distally x1, and transected gallbladder which was moderately intrahepatic was then cauterized from the gallbladder fossa using Bovie. Specimen was placed in an Endo-Catch bag, a retrieved through the umbilical port. Abdominal cavity was copiously irrigated and secured hemostasis. All ports removed under direct laparoscopic view. Wounds were closed in the following manner; umbilical wound has fascia reapproximated using interrupted 0 Vicryl sutures. Skin wounds were closed in subcuticular 4-0 Vicryl sutures followed by Steri-Strips and sterile dressings. Wounds were infiltrated 0.5% Marcaine at completion. Sponge, needle, and instrument counts reported correct. Patient tolerated the procedure well and emerged from anesthesia stable condition. EBL minimal
[2025-01-22] MEDS: fentaNYL citrate/PF 100 MCG/2 ML VIAL 25 MCG IVPUSH ×2 (15:27→15:32)
[2025-01-22] MEDS: HYDROmorphone HCl 0.5 MG/0.5 ML SYRINGE IVPUSH (16:15)
[2025-01-22] MEDS: Morphine Sulfate 4 MG/ML CARTRIDGE IVPUSH (23:23)
[2025-01-22] MEDS: 0.9 % Sodium Chloride Flush 3 ML SYRINGE IVFLUSH (23:26)
[2025-01-23 04:00] VITALS: BP 120/62; PULSE 75; RESP 18; TEMP 36.5; O2SAT 96
[2025-01-23] MEDS: Morphine Sulfate 4 MG/ML CARTRIDGE IVPUSH (06:45)
[2025-01-23 07:49] VITALS: BP 138/86; PULSE 70; RESP 18; TEMP 36.7; O2SAT 97
[2025-01-23 08:11] LABS: Hemoglobin 12.5 g/dl (14.0-18.0); Mean Corpuscular HGB Conc 35.7 g/dl (31.0-36.0); Mean Corpuscular Hemoglobin 30.3 pg (27.0-33.0); Mean Corpuscular Volume 84.7 fL (80.0-98.0); Mean Platelet Volume 11.8 fL (9.4-12.4); Platelet Count 194 X10*3/uL (160-400); Red Blood Count 4.13 X10*6/uL (4.60-5.80); Red Cell Distribution Width 13.2 % (11.0-16.0); White Blood Count 10.1 X10*3/uL (4.8-10.8)
[2025-01-23 08:45] LABS: Alanine Aminotransferase 396 U/L (0-40); Albumin Level 3.6 g/dL (3.5-5.0); Alkaline Phosphatase 96 U/L (39-117); Anion Gap 15 (12-20); Aspartate Amino Transferase 160 U/L (5-37); Bilirubin Direct 0.8 mg/dL (0.0-0.5); Bilirubin Total 1.4 mg/dL (0.0-1.0); Blood Urea Nitrogen 6 mg/dL (9-16); Calcium 8.3 mg/dL (8.4-10.2); Carbon Dioxide 23 mmol/L (22-29); Chloride 106 mmol/L (96-108); Creatinine Clr Calc Pharmacy 120.4; Estimated Glomerular Filt Rate > 60; Glucose Random 77 mg/dL (60-115); Potassium 3.5 mmol/L (3.3-5.1); Sodium 140 mmol/L (135-145); Total Protein 6.7 g/dL (6.5-8.0)
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
--- NOTE | 2025-01-23 11:34 | MHC.CM.PN ---
Patient medically cleared for dc home self care. S.O. will transport home. RN aware.
[2025-01-23 11:51] VITALS: BP 135/83; PULSE 84; RESP 18; TEMP 36.9; O2SAT 96
--- NOTE | 2025-01-23 11:52 | HO.POSTANES ---
Post Anesthesia Evaluation Post Anesthesia Evaluation Date of Service: 01/23/25 Vital Signs: Vital Signs Temp Pulse Resp BP Pulse Ox O2 Del Method 01/23/25 07:49 98.1 F 70 18 138/86 97 Room Air 01/23/25 04:00 97.7 F 75 18 120/62 96 Room Air Anesthesia: General Endotracheal-GETA Mental Status: Awake Pain Control: Satisfactory Nausea/Vomiting: None Hydration: Adequate Anesthesia-Related Issues: No Anes. Related Issues
[2025-01-23 14:51] VITALS: BP 152/82; PULSE 74; RESP 18; TEMP 36.6; O2SAT 96
--- NOTE | 2025-01-23 14:59 | P.PNGS_ITS ---
Subjective Subjective Date of Service: 01/23/25 Interval history: Uneventful evening. Tolerated diet. Minimal incisional discomfort. Increasing his activity level. Physical Exam 2 Vital Signs: Vital Signs: Last Vital Signs Temp 97.9 F 01/23/25 14:51 Pulse 74 01/23/25 14:51 Resp 18 01/23/25 14:51 BP 152/82 H 01/23/25 14:51 Pulse Ox 96 01/23/25 14:51 O2 Del Method Room Air 01/23/25 14:51 O2 Flow Rate 2 01/22/25 15:52 BMI result Body Mass Index 23.5 GI: Other: Abdomen is soft. All wounds clean dry and intact Objective Data Active Medications Acetaminophen (Acetaminophen 325 Mg Tablet) 650 mg PO Q6H PRN PRN Reason: Pain, Mild 1-3,fever,headache Benzocaine (Throat Lozenge, Medicated Lozenge) 1 lozenge MUCOUS MEM Q2H PRN PRN Reason: Sore Throat Last Admin: 01/21/25 17:07 Dose: 1 lozenge Documented By: JULIA Calcium Carbonate (Calcium Carbonate 750 Mg Tab.Chew) 750 mg PO Q4H PRN PRN Reason: Heartburn Hydromorphone HCl (Hydromorphone Hcl 0.5 Mg/0.5 Ml Syringe) 0.5 mg IVPUSH Q4H PRN; Protocol PRN Reason: Pain, Severe (Pain Scale 7-10) Last Admin: 01/22/25 16:15 Dose: 0.5 mg Documented By: JASON Magnesium Hydroxide (Milk Of Magnesia 30 Ml Oral.Susp) 30 ml PO DAILY PRN PRN Reason: Constipation Melatonin (Melatonin 3 Mg Tablet) 6 mg PO BEDTIME PRN PRN Reason: Insomnia Morphine Sulfate (Morphine Sulfate 4 Mg/Ml Cartridge) 4 mg IVPUSH Q4H PRN; Protocol PRN Reason: Pain, Moderate(Pain Scale 4-6) Last Admin: 01/23/25 06:45 Dose: 4 mg Documented By: ALDAIR Naloxone HCl (Naloxone Hcl 0.4 Mg/Ml Vial) 0.04 mg IVPUSH Q5M PRN PRN Reason: Excessive sedation or RR < 8 Naloxone HCl (Naloxone Hcl 0.4 Mg/Ml Vial) 0.04 mg IVPUSH Q5M PRN PRN Reason: Excessive sedation or RR < 8 Ondansetron HCl (Ondansetron Hcl 4 Mg/2 Ml Vial) 4 mg IVPUSH Q8H PRN PRN Reason: Nausea and Vomiting Sodium Chloride (0.9 % Sodium Chloride Flush 3 Ml Syringe) 3 ml IVFLUSH QSHIFT [place] Last Admin: 01/23/25 09:52 Dose: Not Given Documented By: STEPHENIE Non-Admin Reason: IV Running Labs 01/23/25 06:19 01/23/25 06:19 Labs: Laboratory Results - last 24 hr 01/23/25 06:19 MCV 84.7 MCH 30.3 MCHC 35.7 RDW 13.2 Plt Count 194 MPV 11.8 Absolute Nucleated RBC 0.000 Nucleated RBC % (auto) 0.0 Anion Gap 15 Estim Creat Clear Calc 120.4 Estimated GFR > 60 Random Glucose 77 Calcium 8.3 L Total Bilirubin 1.4 H Direct Bilirubin 0.8 H AST 160 H ALT 396 H Alkaline Phosphatase 96 Total Protein 6.7 Albumin 3.6 Procedures Date of Service Date of Service: 01/23/25 Progress Note: A&P Assessment and plan (1) Status post laparoscopic cholecystectomy: Status: Acute Plan Patient was had discharge instructions reviewed with him. Also will be printed out. He will see me in roughly 1 week's time for follow-up. All questions answered. Time Spent With Patient Time: Total time managing care of this patient today ____ minutes. Quality Stroke Does the patient have a stroke diagnosis?: No VTE Prior VTE?: No VTE Risk Level:: Medical - moderate - high VTE Device Contraindication: N/A - Device Ordered VTE Drug Contraindication: Treatment Not Indicated
== END 2025-01-23 15:02 | disposition home or self-care (01) | DRG 419 ==
LOC: HO.ED 21:46 → HO.EDOVER 22:44 → HO.S3 01-20 15:13
PROVIDERS: Internal Medicine Gastroenterology; Surgery; Admitting Provider Physician Assistant; Emergency Provider Emergency Medicine; Visit Provider Internal Medicine
PROC: 0FC98ZZ Extirpation of Matter from Common Bile Duct, Via Natural or Artificial Opening Endoscopic (ICD-10-PCS; CPT 43260; principal; 2025-01-21 13:30)
PROC: 0FT44ZZ Resection of Gallbladder, Percutaneous Endoscopic Approach (ICD-10-PCS; CPT 47562; principal; 2025-01-22 11:40)
DX: K80.50 Calculus of bile duct without cholangitis or cholecystitis without obstruction (principal); Z20.822 Contact with and (suspected) exposure to COVID-19
CPT/HCPCS: 0241U; 36415; 76705; 78226; 80048; 80053; 80076; 82248; 83690; 85025; 85027; 86704; 86706; 86709; 86803; 87340; 88304; 99285; A9537; J0131; J0736; J1100; J1171; J1610; J2003; J2250; J2270; J2405; J2704; J2795; J3010; J7120; Q9967; Q9968

== ENCOUNTER → 2025-01-19 17:55 | Outpatient (BNV) | payer OTHER, SELFPAY | PROVIDERS: Visit Provider Radiology Diagnostic Radiology | DX: R10.11 Right upper quadrant pain (principal) | CPT/HCPCS: 76705 ==

== ENCOUNTER 2025-01-19 22:36 | Outpatient (BNV) | payer OTHER, SELFPAY | END 2025-01-20 13:00 | PROVIDERS: Admitting Provider Physician Assistant; Emergency Provider Emergency Medicine; Visit Provider Radiology Diagnostic Radiology | DX: R10.13 Epigastric pain (principal) | CPT/HCPCS: 78226 ==

== ENCOUNTER → 2025-01-19 22:36 | Outpatient (BNV) | payer OTHER, SELFPAY | PROVIDERS: Admitting Provider Physician Assistant; Emergency Provider Emergency Medicine; Visit Provider Surgery | DX: K80.20 Calculus of gallbladder without cholecystitis without obstruction (principal); K80.50 Calculus of bile duct without cholangitis or cholecystitis without obstruction | CPT/HCPCS: 99222 ==

== ENCOUNTER → 2025-01-19 22:36 | Outpatient (BNV) | payer OTHER, SELFPAY | PROVIDERS: Admitting Provider Physician Assistant; Emergency Provider Emergency Medicine; Visit Provider Internal Medicine | DX: K80.50 Calculus of bile duct without cholangitis or cholecystitis without obstruction (principal) | CPT/HCPCS: 99232; 99233; 99239 ==

== ENCOUNTER → 2025-01-19 22:36 | Outpatient (BNV) | payer OTHER, SELFPAY | PROVIDERS: Admitting Provider Physician Assistant; Emergency Provider Emergency Medicine; Visit Provider Internal Medicine Gastroenterology | DX: K80.50 Calculus of bile duct without cholangitis or cholecystitis without obstruction (principal); K80.20 Calculus of gallbladder without cholecystitis without obstruction | CPT/HCPCS: 99223 ==

== ENCOUNTER 2025-02-15 12:50 | Outpatient (AMB) | payer OTHER, SELFPAY ==
--- NOTE | 2025-02-15 12:57 | A.OFFVIS_ITS ---
Intake Visit Reasons: s/p Cholecystectomy Laparoscopic Intake Note: Patient here s/p laparoscopic cholecystectomy. Reports incision healed well. Patient c/o: no concerns. No longer taking rx pain meds. Surgery: 01-22-2025 Ammonia Worker Required: No Accompanied by: Self / Same As Patient Allergies Penicillins Allergy (Verified 02/15/25 12:59) Rash HPI Comments Details: Patient was status post laparoscopic cholecystectomy. He is doing well. Tolerating diet. Having regular bowel habits. His increasing activity level. He has minimal incisional discomfort. [facility] Medical History No pertinent past medical history Surgical History History of surgery on upper extremity Social History Household Members: Family Household Members Other:: 2 uncles Housing: Apartment Are you a primary doggy daycare activities director to a significant other at home: No Do you presently have visiting nurse or other home services: No Patient Tobacco Use Status: Never used Tobacco Substance Use Type: Marijuana service: No Physical Exam Eyes Other: Anicteric GI Other: Abdomen is soft, benign. All wounds clean dry and intact healing well Assessment & Plan Assessment & Plan (1) Status post laparoscopic cholecystectomy: Code(s): Z90.49 - Acquired absence of other specified parts of digestive tract Category: Medical Plan Patient was been given local instructions including avoiding strenuous activities next few weeks time, a note for work, and will otherwise follow-up p.r.n.. All questions answered. Medications: Discontinued oxycodone Partial Fill upon patient request. Discontinued Reason: Patient no longer taking 5 mg PO Q6H PRN 10 tabs 0RF pain (scale score 7-10) Coding Level of Care Code Global (46707) Diagnoses Status post laparoscopic cholecystectomy Z90.49
--- OUTSIDE RECORDS SUMMARY | 2025-02-15 15:10 | XMS_ITS | Clinical Summary ---
Author Organization [facility] Address [address] [place] [address] Phone Care Team Providers Care Laceworker Name Role Phone Unavailable Primary Care Provider Unavailabl e Immunizations Immunization Administration Dates Next Due DTP 11/11/1992, 0,02/09/1989,1987,02/10/1988 Hep B, ped/adol 11/28/2001,04/05/2000,07/01/1998 Hib (HbOC) 05/11/1989 Influenza, injectable, trivalent 11/11/1994 MMR 07/01/1998,02/09/1989 OPV 11/11/1992, 0,04/11/1988,1987 Td (adult) (MBL), 2 Lf tetan us toxoid, PF, adsorbed 04/05/2000 Social History Tobacco Use Types Packs/Day Years Used Date Smoking Tobacco: Never Assessed Sex and Gender Information Value Date Recorded Sex Assigned at Not on file Legal Sex Male 4:39 PM EDT Gender Identity Not on file Sexual Orientation Not on file Plan of Treatment Health Maintenance Due Date Last Done Comments DTaP,Tdap,and Td Vaccines (6 - Tdap) 04/06/2000 04/05/2000, 11/11/1992, 05/11/1990, Additional history exists Varicella Vaccines (1 of 2 - 13+ 2-dose series) 2000 Influenza Vaccines (#1) 2024 11/11/1994 COVID-19 Vaccine (2023- season) 2024 HIB Vaccines Completed 05/11/1989 IPV Vaccines Completed 11/11/1992, 07/0 11/1989, 04/11/1988, Additional history exists MMR Vaccines Completed 07/01/1998, 02/09/1989 Hepatitis B Vaccines Completed 11/28/2001, 04/05/2000, 07/01/1998 HPV Vaccines Aged Out No longer eligi ble based on patient's age to complete this topic Hepatitis A Vaccines Aged Out No long er eligible based on patient's age to complete this topic Men B Vaccine Aged Out No longer elig ible based on patient's age to complete this topic Meningococcal Vaccine Aged Out No ivette chantal eligible based on patient's age to complete this topic Pneumococcal Vaccine Aged Out No long er eligible based on patient's age to complete this topic
== END 2025-02-15 13:05 | disposition home or self-care (01) ==
LOC: HO.HGS 12:51
PROVIDERS: Visit Provider Surgery
DX: Z90.49 Acquired absence of other specified parts of digestive tract (principal)
CPT/HCPCS: 99024